=== PATIENT | male | born 1955 | race Caucasian/White ===

== ENCOUNTER 2016-06-22 13:14 | Emergency (ER) | payer MEDICARE, MEDICAID ==
[2016-06-22 13:31] VITALS: BP 151/96; PULSE 110; TEMP 98.4; BMI 28.4
[2016-06-22 13:48] LABS: AUTOMATED BASOPHIL 1.2 % (0-2); AUTOMATED EOSINOPHIL 2.9 % (0-5); AUTOMATED LYMPH 26.7 % (17-44); AUTOMATED MONOCYTE 5.3 % (3-10); AUTOMATED NEUTROPHIL 63.9 % (45-76); MPV 9.2 fL (7.4-10.4)
[2016-06-22 14:00] LABS: BLOOD UREA NITROGEN 14 MG/DL (9-20); CALCIUM 9.8 MG/DL (8.4-10.2); CALCULATED OSMOLALITY 279 MOs/Kg (270-290); CHLORIDE 102 mEq/L (98-107); CPK TOTAL WITH POSSIBLE MB 63 IU/L (55-170); GLUCOSE 383 MG/DL (70-99); SODIUM LEVEL 136 mEq/L (137-146); TOTAL PROTEIN 6.9 G/DL (6.3-8.2)
[2016-06-22 14:19] LABS: PARTIAL THROMB. TIME 25.2 SEC (22-35)
== END 2016-06-22 16:20 | disposition left against medical advice (07) ==
LOC: ED 13:14
DX: R55 Syncope and collapse (principal); M62.81 Muscle weakness (generalized); Z53.21 Procedure and treatment not carried out due to patient leaving prior to being seen by health care provider
CPT/HCPCS: 80053; 82550; 83880; 84484; 85025; 85610; 85730

== ENCOUNTER 2016-06-22 18:50 | Emergency (ER) | payer MEDICARE, MEDICAID ==
[2016-06-22 18:50] VITALS: BMI 28.4
[2016-06-22 19:25] VITALS: TEMP 98.2
[2016-06-22 19:45] LABS: ALL NEG? NO
[2016-06-22 19:50] LABS: LEUKOCYTES/URINE NEG (NEGATIVE); NITRITE/URINE NEG (NEGATIVE); URINE OCCULT BLOOD NEG (NEG/TRACE)
[2016-06-22 19:55] LABS: RBC/URINE 0-2 (0-2)
[2016-06-22 19:59] LABS: MDMA* NEG (NEGATIVE); METHAMPHETAMINES NEG (NEGATIVE); OXYCODONE *POSITIVE* (NEGATIVE)
[2016-06-22 20:02] LABS: CPK TOTAL WITH POSSIBLE MB 60 IU/L (55-170)
[2016-06-22] MEDS ORDERED: OXYCODONE HCL 5 MG TABLET PO ONE (21:34)
--- NOTE | 2016-06-22 22:22 | EDPRACDOC ---
- General Information Chief Complaint: Generalized Weakness Stated Complaint: PAIN ALL OVER Time Seen by Provider: 06/22/16 20:42 Mode Of Arrival: Ambulance Home Medications: Home Medications Metformin HCl [Glucophage] 1,000 mg PO BID 07/27/12 Metoprolol Succinate (XL) [Toprol Xl] 50 mg PO DAILY 07/27/12 Sertraline HCl [Zoloft] 200 mg PO DAILY 07/27/12 Albuterol Sulfate [Proventil Hfa] 1 - 2 puff INH Q4H PRN #1 each 10/25/14 Gabapentin 800 mg PO TID 02/09/15 Ondansetron HCl [Zofran] 4 mg PO TID PRN 02/09/15 Abacavir/Dolutegravir/Lamivudi [Triumeq Tablet] 1 tab PO DAILY 10/26/15 Diclofenac Sodium 75 mg PO BID 10/26/15 Clopidogrel Bisulfate [Plavix] 75 mg PO DAILY 01/16/16 Aspirin (Enteric Coated) [Halfprin] 81 mg PO DAILY 04/26/16 Budesonide/Formoterol Fumarate [Symbicort 80-4.5 Mcg Inhaler] 2 puff INH BID Quetiapine Fumarate [Seroquel] 400 mg PO QHS 04/26/16 Alprazolam [Xanax] 1 mg PO BID PRN #30 tablet 04/28/16 Amlodipine [Norvasc] 5 mg PO DAILY #30 tab 04/28/16 BuPROPion (BID formulation) [Wellbutrin-Sr] 150 mg PO DAILY #30 tab.sr.12h 04/28 Pregabalin [Lyrica] 100 mg PO TID #30 capsule 04/28/16 Famotidine [Acid Bar Machine Operator Multiple Spindle] 20 mg PO BID 06/22/16 Fluticasone/Vilanterol [Breo Ellipta 100-25 Mcg INH] 1 puff INH BID 06/22/16 Insulin Detemir [Levemir Flextouch] 30 unit SQ QHS 06/22/16 Insulin Detemir [Levemir Flextouch] 60 unit SQ QAM 06/22/16 Oxycodone HCl [Oxycodone HCl ER] 30 mg PO BID #5 tab.er.12h 06/22/16 Oxycodone Immediate Release [Oxycodone Immediate Release (OxyIR)] 15 mg PO TID PRN 06/22/16 Allergies/Adverse Reactions: Allergies Allergy/AdvReac Type Severity Reaction Status Date / Time Iodinated Contrast Media - Allergy Severe Anaphylaxis Verified 06/22/16 19:25 IV Dye * [IV Dye, Iodine Containing Contrast ] levofloxacin [From Levaquin] Allergy Severe Anaphylaxis Verified 06/22/16 19:25 * shellfish derived Allergy Severe Anaphylaxis Verified 06/22/16 19:25 * Sulfa (Sulfonamide Allergy Severe Anaphylaxis Verified 06/22/16 19:25 Antibiotics) * [Sulfa(Sulfonamide Antibiotics)] acetaminophen [From Vicodin] Allergy Intermediate Nausea/Vomi Verified 06/22/16 19:25 ting hydrocodone bitartrate Allergy Intermediate Nausea/Vomi Verified 06/22/16 19:25 [From Vicodin] ting - History of Present Illness Onset: 1 WEEK Exact Onset of Symptoms: Unknown HPI: PT PRESENTS TODAY WITH LOWER EXTREMITY PAIN/WEAKNESS THAT BEGAN X 1 WEEK, BUT MUCH WORSE THIS MORNING. PT STATES THAT HE WAS RECENTLY D/C FROM [facility] FOR [facility] AND HE FEELS THOUGH HE IS SUFFERING FROM THIS AGAIN. PT STATES HIS PAIN WAS SO BAD THIS MORNING THAT HE PASSED OUT. DENIES FEVER, CP, SHOB, ABD PAIN, N/V/D. PT ARRIVED AT ED VIA POV, BUT BECAME ANGRY AT WAITING SO LONG, SO PT LEFT AND NOW IS ARRIVING VIA EMS. INITIAL LABS WERE PERFORMED DURING FIRST CHECK IN 6 HOURS AGO AND WERE UNREMARKABLE. NO APPARENT DISTRESS. Symptoms Started: Reports: Gradually Weakness: Bilateral: Leg Symptom Severity: Reports: Unable to performs ADL's Associated signs and symptoms:: Reports: None ED Past Medical History - History Reviewed Yes Nurses notes reviewed and agree except as marked - Patient Medical History Cardiac History: Reports: Hypertension, Congestive Heart Failure (Claims to have a history of CHF but his BNP is under 200), Hypercholesterolemia Respiratory History: Reports: Asthma, COPD GI/ History: Reports: Ulcer (Bleeding Ulcers X2 with abdominal surgery for this.) Musculoskeletal History: Reports: Arthritis Psychological History: Reports: Anxiety. Denies: Depression, Substance Use Disorder (States he has never abused substances other than alcohol.) Systemic History: Reports: Anemia, Diabetes, HIV. Denies: Cancer Surgical History: Reports: Tonsillectomy/Adnoidectomy - Family Medical History Reports: Hypertension (Parents,Sisters,Brothers,), Diabetes (Mother,Father, Sisters,Brothers), Cancer (Brother-kidney), Stroke (Mother), Cardiac Disorders ( Father) - Social Medical History Smoking Status: Heavy tobacco smoker (5 or more cigarettes/day or daily pipe/ cigar) Social History: Denies: Substance Use Disorder (States he has never abused substances other than alcohol.) EDM Review of Systems - Review of Systems ROS Negative Except as Marked: Yes All systems reviewed and were negative except as marked Constitutional: No Symptoms Reported Respiratory: No Symptoms Reported Cardiovascular: No Symptoms Reported Gastrointestinal: No Symptoms Reported Neurological: Weakness Musculoskeletal: Leg Integumentary: No Symptoms Reported - Physical Exam Constitutional: Alert (Awake), No apparent distress Oriented to: Time, Person, Place Last recorded Vital Signs: Last Vital Signs Temp 98.2 F 06/22/16 19:22 Pulse 102 06/22/16 21:07 Resp 20 06/22/16 21:53 BP 181/95 H 06/22/16 21:07 Pulse Ox 96 06/22/16 21:07 Oxygen Pulse Oxygen Saturation 96 O2 Device Room Air Oxygen Flow Rate Fraction of Inspired Oxygen ( FIO2) - HEENT Head: Normal Eye Exam: Normal Neck: Normal, Denies Pain, Midline - Respiratory/Cardiovascular Respiratory: Normal - CTA Cardiovascular: Tachycardia - GI Palpation: Normal Tenderness: Non tender - Musculoskeletal Back: Normal Extremities: Other (EXTREMITIES APPEAR NORMAL; PT AMBULATES TO BATHROOM WITH CANE WHICH IS HIS NORMAL; PEDAL PULSES NORMAL; NO EDEMA/PETECHIA/CELLULITIS NOTED; [place] INTACT) - Integumentary Skin: Normal Lymphatics: Normal - Neurologic Mood Description: Normal Thought: Coherent Perception: Normal - Results POC Capillary Glucose 360 MG/DL (70-99) H 06/22/16 19:26 Creatine Kinase 60 IU/L (55-170) 06/22/16 19:05 Troponin I < 0.01 ng/mL (<.04) 06/22/16 19:05 Urine Color Yellow 06/22/16 19:33 Urine Clarity Clear 06/22/16 19:33 Urine pH 6.0 (5.0-8.0) 06/22/16 19:33 Ur Specific [place] 1.010 06/22/16 19:33 Urine Protein Neg (NEG/TRACE) 06/22/16 19:33 Urine Glucose (UA) 3+ (NEGATIVE) 06/22/16 19:33 Urine Ketones Neg (NEGATIVE) 06/22/16 19:33 Urine Occult Blood Neg (NEG/TRACE) 06/22/16 19:33 Urine Nitrite Neg (NEGATIVE) 06/22/16 19:33 Urine Bilirubin Neg (NEGATIVE) 06/22/16 19:33 Urine Urobilinogen 0.2 MG/DL (0-1) 06/22/16 19:33 Ur Leukocyte Esterase Neg (NEGATIVE) 06/22/16 19:33 Urine RBC 0-2 (0-2) 06/22/16 19:33 Ur Epithelial Cells Occ 06/22/16 19:33 Urine Opiates Screen Neg (NEGATIVE) 06/22/16 19:33 Ur Oxycodone Screen *positive* (NEGATIVE) H 06/22/16 19:33 Urine Methadone Screen Neg (NEGATIVE) 06/22/16 19:33 Ur Barbiturates Screen Neg (NEGATIVE) 06/22/16 19:33 Ur Tricyclics Screen Neg (NEGATIVE) 06/22/16 19:33 Ur Phencyclidine Scrn Neg (NEGATIVE) 06/22/16 19:33 Ur Amphetamines Screen Neg (NEGATIVE) 06/22/16 19:33 U Methamphetamines Scrn Neg (NEGATIVE) 06/22/16 19:33 Urine MDMA Screen Neg (NEGATIVE) 06/22/16 19:33 U Benzodiazepines Scrn *positive* (NEGATIVE) H 06/22/16 19:33 Urine Cocaine Screen Neg (NEGATIVE) 06/22/16 19:33 Ur THC Screen Neg (NEGATIVE) 06/22/16 19:33 Lab Results 06/22/16 06/22/16 06/22/16 19:33 19:33 19:26 POC Capillary Glucose 360 H Creatine Kinase Troponin I Urine Color Yellow Urine Clarity Clear Urine pH 6.0 Ur Specific [place] 1.010 Urine Protein Neg Urine Glucose (UA) 3+ Urine Ketones Neg Urine Occult Blood Neg Urine Nitrite Neg Urine Bilirubin Neg Urine Urobilinogen 0.2 Ur Leukocyte Esterase Neg Urine RBC 0-2 Ur Epithelial Cells Occ Urine Opiates Screen Neg Ur Oxycodone Screen *positive* H Urine Methadone Screen Neg Ur Barbiturates Screen Neg Ur Tricyclics Screen Neg Ur Phencyclidine Scrn Neg Ur Amphetamines Screen Neg U Methamphetamines Scrn Neg Urine MDMA Screen Neg U Benzodiazepines Scrn *positive* H Urine Cocaine Screen Neg Ur THC Screen Neg 06/22/16 19:05 POC Capillary Glucose Creatine Kinase 60 Troponin I < 0.01 Urine Color Urine Clarity Urine pH Ur Specific [place] Urine Protein Urine Glucose (UA) Urine Ketones Urine Occult Blood Urine Nitrite Urine Bilirubin Urine Urobilinogen Ur Leukocyte Esterase Urine RBC Ur Epithelial Cells Urine Opiates Screen Ur Oxycodone Screen Urine Methadone Screen Ur Barbiturates Screen Ur Tricyclics Screen Ur Phencyclidine Scrn Ur Amphetamines Screen U Methamphetamines Scrn Urine MDMA Screen U Benzodiazepines Scrn Urine Cocaine Screen Ur THC Screen - EKG EKG #1 EKG Time: 13:38 -: Yes EKG interpreted by me Rate: bpm: 108 [place]: Normal Rhythm: ST Block: None Hypertrophy: None ST: Normal EKG #2 EKG Time: 19:30 -: Yes EKG interpreted by me Rate: bpm: 117 [place]: Normal Rhythm: ST Block: None Hypertrophy: None ST: Normal - Additional Information CASE DISCUSSED WITH DR. WRIGHT; PT ASSESSED WITH DR. WRIGHT WHO ADVISES TO STOP CHOLESTEROL MEDICATION AND GIVE BREAKTHROUGH PAIN MEDICATION. Decision Time to Discharge: 22:30 - Departure Disposition: Home Condition: Good Final Diagnosis: Lower extremity pain, bilateral Instructions: Weakness (General) Education/Counseling Given To: Patient Education/Counseling Given Regarding: Diagnosis, Treatment, Follow Up Referrals: Harriett Eduardo MD [Primary Care Provider] - One Week Prescriptions: Oxycodone HCl [Oxycodone HCl ER] 30 mg PO BID #5 tab.er.12h Additional Instructions: PLEASE FOLLOW UP WITH PCP.
[2016-06-22 22:51] VITALS: BP 172/88; PULSE 100
== END 2016-06-22 22:49 | disposition home or self-care (01) ==
LOC: ED 18:50
DX: M79.605 Pain in left leg (principal); M79.604 Pain in right leg; I10 Essential (primary) hypertension; E78.00 Pure hypercholesterolemia, unspecified; E11.9 Type 2 diabetes mellitus without complications; F41.9 Anxiety disorder, unspecified; B20 Human immunodeficiency virus [HIV] disease; J44.9 Chronic obstructive pulmonary disease, unspecified; J45.909 Unspecified asthma, uncomplicated; F17.200 Nicotine dependence, unspecified, uncomplicated; Z79.82 Long term (current) use of aspirin; Z79.4 Long term (current) use of insulin; Z79.899 Other long term (current) drug therapy
CPT/HCPCS: 36415; 80307; 81001; 82550; 82962; 84484; 93005; 99283; A9270; J3490